=== PATIENT | male | born 1975 | race African-American/Black ===

== ENCOUNTER 2021-03-11 13:54 | Inpatient (IN) | payer BC ==
[2021-03-11] VITALS (8 sets, daily range): BP systolic 122–140; BP diastolic 88–98
[~2021-03-11] VITALS: Ht 167.6 cm; Wt 59.0 kg
[2021-03-11] MEDS ORDERED: HYDROmorphone 2 MG/ML VIAL IVP ONE ×3 (14:00→17:00)
[2021-03-11 14:12] LABS: BASO # 0.1 x10^3/uL (0.0-0.2); BASO % 1 % (0-3); EOS % 1 % (0-3); HEMATOCRIT 43.7 % (39.0-53.0); HEMOGLOBIN 14.1 g/dL (13.0-17.5); LYMPH # 4.7 x10^3/uL (1.0-4.8); LYMPH % 65 % (24-48); MEAN CORPUSCULAR HEMOGLOBIN 26 pg (25-35); MEAN CORPUSCULAR HGB CONC 32 g/dL (31-37); MEAN CORPUSCULAR VOLUME 79 fL (79-100); MONO # 0.8 x10^3/uL (0.0-1.1); MONO % 11 % (0-9); NEUT # 1.6 x10^3/uL (1.8-7.7); NEUT % 23 % (31-73); PLATELET COUNT 389 x10^3/uL (140-400); RED CELL DISTRIBUTION WIDTH 14.5 % (11.5-14.5); WHITE BLOOD COUNT 7.2 x10^3/uL (4.0-11.0)
[2021-03-11 14:21] LABS: PROTHROMBIN TIME PATIENT 12.4 SEC (11.7-14.0)
[2021-03-11 14:28] LABS: ALBUMIN 3.9 g/dL (3.4-5.0); ALBUMIN/GLOBULIN RATIO 1.1 (1.0-1.7); CALCIUM 8.9 mg/dL (8.5-10.1); CREATININE 0.9 mg/dL (0.7-1.3); GFR 91.3; TOTAL BILIRUBIN 0.3 mg/dL (0.2-1.0); TOTAL PROTEIN 7.6 g/dL (6.4-8.2)
[2021-03-11] MEDS ORDERED: IOHEXOL 350 MG/ML 100 ML VIAL. IV ONE (14:30)
[2021-03-11] MEDS ORDERED: IV NORMAL SALINE 1000ML BAG 1,000 ML IV ONE ×2 (14:30→16:15)
[2021-03-11 14:31] LABS: POTASSIUM 2.8 mmol/L (3.5-5.1)
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
[2021-03-11] MEDS ORDERED: POTASSIUM BICARB 20 MEQ EFFERVESCENT TABLET. PO ONE (14:45)
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
[2021-03-11] MEDS ORDERED: DIPH,PERTUSS(ACELL),TET VAC/PF 0.5 ML SYRINGE. VAX IM ONE (16:15)
[2021-03-11 16:16] LABS: % ATYL 1 % (0-0); % BANDS 2 % (0-9); % LYMPHS 61 % (24-48); % MONOS 7 % (0-10); % SEGS 29 % (35-66)
[2021-03-11 16:17] LABS: PLT ESTIMATE ADEQUATE (ADEQUATE)
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
[2021-03-11] MEDS ORDERED: ROCURONIUM 50 MG/5 ML VIAL. ONE (16:40)
[2021-03-11] MEDS ORDERED: SUCCINYLCHOLINE 200 MG/10 ML VIAL. ONE (16:40)
[2021-03-11] MEDS ORDERED: PROPOFOL 10 MG/ML (20ML) VIAL. IV ONE (16:43)
[2021-03-11] MEDS ORDERED: DESFLURANE > 120 MINUTES IH ONE (16:43)
[2021-03-11] MEDS ORDERED: LIDOCAINE 2% PF 5 ML VIAL. ONE (16:44)
[2021-03-11] MEDS ORDERED: PHENYLEPHRINE in 0.9% NACL PF 1 MG/10 ML SYRINGE. IV ONE (16:44)
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
[2021-03-11] MEDS ORDERED: THROMBIN TOPICAL 5,000 UNIT VIAL. ONE (16:55)
[2021-03-11] MEDS ORDERED: GELATIN SPONGE SIZE 100. ONE (16:55)
[2021-03-11] MEDS ORDERED: SURGICEL FIBRILLAR 1X2 EACH. ONE (16:55)
[2021-03-11] MEDS ORDERED: PAPAVERINE 60 MG/2 ML VIAL. ONE (16:56)
[2021-03-11] MEDS ORDERED: LIDOCAINE 1% PF 30 ML VIAL. ONE (16:56)
[2021-03-11] MEDS ORDERED: BUPIVACAINE MPF 0.5% 30 ML VIAL. ONE (16:56)
[2021-03-11] MEDS ORDERED: fentaNYL PF VIAL 100 MCG/2 ML VIAL IVP PRN ×3 (17:00→19:30)
[2021-03-11] MEDS ORDERED: HEPARIN SODIUM 5,000 UNIT in IV NORMAL SALINE 500ML BAG 500 ML IRR ONE (17:00)
[2021-03-11] MEDS ORDERED: SENNOSIDES/DOCUSATE 8.6/50MG TABLET. PO PRN (17:00)
[2021-03-11] MEDS ORDERED: oxyCODONE IR 5 MG TABLET PO PRN (17:00)
[2021-03-11] MEDS ORDERED: ONDANSETRON PF 4 MG/2 ML VIAL. ONE (17:36)
[2021-03-11] MEDS ORDERED: DEXAMETHASONE SOD PHOS 4 MG/ML VIAL ONE (17:36)
[2021-03-11] MEDS ORDERED: FAMOTIDINE 20 MG/2 ML VIAL ONE (17:36)
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
[2021-03-11] MEDS ORDERED: fentaNYL PF VIAL 250 MCG/5 ML VIAL ONE (18:38)
[2021-03-11] MEDS ORDERED: MAG HYDROX/ALUMINUM HYD/SIMETH 30 ML ORAL.SUSP PO PRN (19:15)
[2021-03-11] MEDS ORDERED: 0.9 % SODIUM CHLORIDE 10 ML DISP.SYRIN. IV PRN (19:15)
[2021-03-11] MEDS: IV NORMAL SALINE 1000ML BAG 1,000 ML IV SCH (19:15)
[2021-03-11] MEDS ORDERED: NALOXONE 0.4 MG/ML VIAL. IV PRN (19:15)
[2021-03-11] MEDS ORDERED: IV NORMAL SALINE 1000ML BAG 1,000 ML IV SCH (19:15)
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
[2021-03-11] MEDS ORDERED: IV RINGERS,LACTATED 1000ML 1,000 ML IV SCH (19:30)
[2021-03-11] MEDS ORDERED: HYDROmorphone 2 MG/ML VIAL IVP PRN (19:30)
[2021-03-11] MEDS ORDERED: PROCHLORPERAZINE 10 MG/2 ML VIAL. IVP PRN (19:30)
[2021-03-11] MEDS ORDERED: ceFAZolin SODIUM IV Push 1 GM VIAL. IVP SCH (19:30)
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
[2021-03-11] MEDS ORDERED: MORPHINE SULFATE 2 MG/ML INJ. ONE (19:57)
[2021-03-11] MEDS: MORPHINE SULFATE 2 MG/ML INJ. IVP PRN ×2 (20:04→20:19)
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
[2021-03-11] MEDS: PSYLLIUM HUSK (SUGAR FREE) 1 PKT PACKET PO SCH (21:05)
[2021-03-11] MEDS: oxyCODONE IR 5 MG TABLET PO PRN (22:12)
[2021-03-11] MEDS: ONDANSETRON PF 4 MG/2 ML VIAL. IVP PRN (22:52)
[2021-03-12] VITALS (7 sets, daily range): BP systolic 123–145; BP diastolic 66–98
[2021-03-12] MEDS: HYDROmorphone 2 MG/ML VIAL IVP PRN ×3 (03:22→11:47)
[2021-03-12] MEDS: IV NORMAL SALINE 1000ML BAG 1,000 ML IV SCH ×2 (05:40→17:38)
[2021-03-12] MEDS: HEPARIN for SUB-Q USE 5,000 UNIT/ML VIAL. SQ SCH ×3 (05:50→21:38)
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
[2021-03-12] MEDS ORDERED: ceFAZolin SODIUM IV Push 1 GM VIAL. IVP ONE (06:00)
[2021-03-12] MEDS: ASPIRIN ENTERIC COATED 81 MG TABLET.DR. PO SCH (08:37)
[2021-03-12] MEDS: POLYETHYLENE GLYCOL 3350 17 GM PACKET. PO SCH (08:38)
[2021-03-12] MEDS: ONDANSETRON PF 4 MG/2 ML VIAL. IVP PRN ×2 (09:06→14:14)
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
[2021-03-12 12:42] LABS: HEMATOCRIT 33.5 % (39.0-53.0); HEMOGLOBIN 10.8 g/dL (13.0-17.5); RED BLOOD COUNT 4.3 x10^6/uL (4.30-5.70); RED CELL DISTRIBUTION WIDTH 14.2 % (11.5-14.5); WHITE BLOOD COUNT 8.6 x10^3/uL (4.0-11.0)
[2021-03-12 12:57] LABS: ALBUMIN 3.5 g/dL (3.4-5.0); ALBUMIN/GLOBULIN RATIO 1.1 (1.0-1.7); CALCIUM 8.2 mg/dL (8.5-10.1); CREATININE 0.8 mg/dL (0.7-1.3); GFR 126.5; POTASSIUM 3.5 mmol/L (3.5-5.1); TOTAL BILIRUBIN 0.4 mg/dL (0.2-1.0); TOTAL PROTEIN 6.6 g/dL (6.4-8.2)
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
[2021-03-12] MEDS: oxyCODONE IR 5 MG TABLET PO PRN ×2 (15:41→20:03)
[2021-03-12] MEDS: traMADol 50 MG TABLET PO PRN (19:20)
[2021-03-12] MEDS: PSYLLIUM HUSK (SUGAR FREE) 1 PKT PACKET PO SCH (21:00)
[2021-03-12] MEDS: LACTOBACILLUS RHAMNOSUS GG 1 CAPSULE. PO SCH (21:31)
[2021-03-13] MEDS: IV NORMAL SALINE 1000ML BAG 1,000 ML IV SCH ×3 (01:24→23:24)
[2021-03-13 02:58] VITALS: BP 119/86
[2021-03-13] MEDS: oxyCODONE IR 5 MG TABLET PO PRN ×2 (05:41→10:35)
[2021-03-13] MEDS: ACETAMINOPHEN 325 MG TABLET. PO PRN (06:14)
[2021-03-13] MEDS: HEPARIN for SUB-Q USE 5,000 UNIT/ML VIAL. SQ SCH ×3 (06:25→23:18)
[2021-03-13 07:00] VITALS: BP 127/89
[2021-03-13] MEDS: ONDANSETRON PF 4 MG/2 ML VIAL. IVP PRN ×4 (07:30→23:25)
[2021-03-13] MEDS: fentaNYL PF VIAL 100 MCG/2 ML VIAL IVP PRN ×5 (07:36→23:25)
[2021-03-13] MEDS: LACTOBACILLUS RHAMNOSUS GG 1 CAPSULE. PO SCH ×2 (08:58→20:18)
[2021-03-13] MEDS: ASPIRIN ENTERIC COATED 81 MG TABLET.DR. PO SCH (08:58)
[2021-03-13] MEDS: POLYETHYLENE GLYCOL 3350 17 GM PACKET. PO SCH (09:00)
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
[2021-03-13 11:00] VITALS: BP 126/84
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
[2021-03-13 15:00] VITALS: BP 99/65
[2021-03-13 19:00] VITALS: BP 132/83
[2021-03-13] MEDS: PSYLLIUM HUSK (SUGAR FREE) 1 PKT PACKET PO SCH (21:00)
[2021-03-13 23:00] VITALS: BP 120/76
[2021-03-14 03:00] VITALS: BP 121/81
[2021-03-14] MEDS: HEPARIN for SUB-Q USE 5,000 UNIT/ML VIAL. SQ SCH ×3 (06:00→22:22)
[2021-03-14 07:00] VITALS: BP 126/84
[2021-03-14] MEDS: IV NORMAL SALINE 1000ML BAG 1,000 ML IV SCH ×2 (07:15→17:15)
[2021-03-14] MEDS: ONDANSETRON PF 4 MG/2 ML VIAL. IVP PRN ×3 (07:25→21:05)
[2021-03-14 07:31] LABS: HEMATOCRIT 31.3 % (39.0-53.0); HEMOGLOBIN 9.9 g/dL (13.0-17.5); RED BLOOD COUNT 4.02 x10^6/uL (4.30-5.70); RED CELL DISTRIBUTION WIDTH 13.6 % (11.5-14.5); WHITE BLOOD COUNT 6.6 x10^3/uL (4.0-11.0)
[2021-03-14] MEDS: fentaNYL PF VIAL 100 MCG/2 ML VIAL IVP PRN ×3 (07:31→21:11)
[2021-03-14 07:58] LABS: ALBUMIN 2.7 g/dL (3.4-5.0); ALBUMIN/GLOBULIN RATIO 0.8 (1.0-1.7); CREATININE 0.8 mg/dL (0.7-1.3); GFR 126.5; POTASSIUM 3.3 mmol/L (3.5-5.1); TOTAL BILIRUBIN 0.4 mg/dL (0.2-1.0); TOTAL PROTEIN 6.1 g/dL (6.4-8.2)
[2021-03-14] MEDS: LACTOBACILLUS RHAMNOSUS GG 1 CAPSULE. PO SCH ×2 (08:46→22:16)
[2021-03-14] MEDS: ASPIRIN ENTERIC COATED 81 MG TABLET.DR. PO SCH (08:46)
[2021-03-14] MEDS: POLYETHYLENE GLYCOL 3350 17 GM PACKET. PO SCH (08:49)
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
[2021-03-14 11:03] VITALS: BP 119/83
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
[2021-03-14] MEDS ORDERED: POTASSIUM CHLORIDE 20 MEQ TABLET.ER. PO ONE (14:30)
[2021-03-14 15:07] VITALS: BP 138/89
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
[2021-03-14 19:00] VITALS: BP 135/83
[2021-03-14] MEDS: PSYLLIUM HUSK (SUGAR FREE) 1 PKT PACKET PO SCH (22:16)
[2021-03-14 23:00] VITALS: BP 115/81
[2021-03-15 03:00] VITALS: BP 101/63
[2021-03-15] MEDS: IV NORMAL SALINE 1000ML BAG 1,000 ML IV SCH ×3 (03:15→13:15)
[2021-03-15 04:09] LABS: HEMATOCRIT 30.9 % (39.0-53.0); RED BLOOD COUNT 3.92 x10^6/uL (4.30-5.70); RED CELL DISTRIBUTION WIDTH 13.8 % (11.5-14.5); WHITE BLOOD COUNT 5.5 x10^3/uL (4.0-11.0)
[2021-03-15 04:40] LABS: ALBUMIN 2.5 g/dL (3.4-5.0); ALBUMIN/GLOBULIN RATIO 0.7 (1.0-1.7); CALCIUM 8.1 mg/dL (8.5-10.1); CREATININE 0.7 mg/dL (0.7-1.3); GFR 147.6; POTASSIUM 3.3 mmol/L (3.5-5.1); TOTAL BILIRUBIN 0.3 mg/dL (0.2-1.0)
[2021-03-15] MEDS: HEPARIN for SUB-Q USE 5,000 UNIT/ML VIAL. SQ SCH ×3 (06:00→22:05)
[2021-03-15] MEDS: ONDANSETRON PF 4 MG/2 ML VIAL. IVP PRN ×4 (06:22→21:59)
[2021-03-15] MEDS: fentaNYL PF VIAL 100 MCG/2 ML VIAL IVP PRN ×4 (06:46→22:00)
[2021-03-15 07:00] VITALS: BP 120/83
[2021-03-15] MEDS: POLYETHYLENE GLYCOL 3350 17 GM PACKET. PO SCH (09:00)
[2021-03-15] MEDS: ASPIRIN ENTERIC COATED 81 MG TABLET.DR. PO SCH (09:41)
[2021-03-15] MEDS: LACTOBACILLUS RHAMNOSUS GG 1 CAPSULE. PO SCH ×2 (09:41→20:35)
[2021-03-15 11:00] VITALS: BP 119/82
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
[2021-03-15] MEDS ORDERED: POTASSIUM CHLORIDE 20 MEQ TABLET.ER. PO ONE (13:30)
[2021-03-15 15:00] VITALS: BP 115/80
[2021-03-15 19:30] VITALS: BP 128/93
[2021-03-15] MEDS: PSYLLIUM HUSK (SUGAR FREE) 1 PKT PACKET PO SCH (20:36)
[2021-03-15 23:38] VITALS: BP 127/84
[2021-03-16 03:23] VITALS: BP 103/79
[2021-03-16] MEDS: HEPARIN for SUB-Q USE 5,000 UNIT/ML VIAL. SQ SCH ×3 (06:00→20:41)
[2021-03-16 07:15] VITALS: BP 123/84
[2021-03-16] MEDS: ONDANSETRON PF 4 MG/2 ML VIAL. IVP PRN ×4 (07:36→21:25)
[2021-03-16] MEDS: fentaNYL PF VIAL 100 MCG/2 ML VIAL IVP PRN ×4 (07:38→21:26)
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
[2021-03-16] MEDS: POLYETHYLENE GLYCOL 3350 17 GM PACKET. PO SCH (09:00)
[2021-03-16] MEDS: IV NORMAL SALINE 1000ML BAG 1,000 ML IV SCH ×2 (09:15→20:14)
[2021-03-16] MEDS: LACTOBACILLUS RHAMNOSUS GG 1 CAPSULE. PO SCH ×2 (09:32→20:10)
[2021-03-16] MEDS: ASPIRIN ENTERIC COATED 81 MG TABLET.DR. PO SCH (09:32)
--- NOTE | 2021-03-16 10:14 | NUR ---
SW following. Discussed with RN, pt from home in [place], [place], room air, regular diet. Therapy recommending home. Pt had surgery on 03/11. Some discussion about a wound vac. Med Assist following for self pay status. SW will continue to follow.
[2021-03-16 10:52] VITALS: BP 127/82
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
[2021-03-16 15:09] VITALS: BP 149/98
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
[2021-03-16 19:00] VITALS: BP 131/85
[2021-03-16] MEDS: oxyCODONE IR 5 MG TABLET PO PRN (20:09)
[2021-03-16] MEDS: PSYLLIUM HUSK (SUGAR FREE) 1 PKT PACKET PO SCH (20:15)
[2021-03-16 23:00] VITALS: BP 120/74
[2021-03-17] MEDS: traMADol 50 MG TABLET PO PRN (00:35)
[2021-03-17] MEDS: ONDANSETRON PF 4 MG/2 ML VIAL. IVP PRN ×3 (02:34→22:14)
[2021-03-17] MEDS: fentaNYL PF VIAL 100 MCG/2 ML VIAL IVP PRN ×3 (02:34→22:18)
[2021-03-17 03:00] VITALS: BP 116/79
[2021-03-17] MEDS: HEPARIN for SUB-Q USE 5,000 UNIT/ML VIAL. SQ SCH ×3 (05:17→22:00)
[2021-03-17] MEDS: oxyCODONE IR 5 MG TABLET PO PRN ×4 (05:29→20:13)
[2021-03-17] MEDS: IV NORMAL SALINE 1000ML BAG 1,000 ML IV SCH ×2 (05:29→15:59)
[2021-03-17 07:15] VITALS: BP 107/75
[2021-03-17] MEDS: POLYETHYLENE GLYCOL 3350 17 GM PACKET. PO SCH (09:00)
[2021-03-17] MEDS: ASPIRIN ENTERIC COATED 81 MG TABLET.DR. PO SCH (09:43)
[2021-03-17] MEDS: LACTOBACILLUS RHAMNOSUS GG 1 CAPSULE. PO SCH ×2 (09:43→21:21)
[2021-03-17 11:14] VITALS: BP 118/93
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
[2021-03-17 15:05] VITALS: BP 128/78
[2021-03-17 19:47] VITALS: BP 134/90
[2021-03-17] MEDS: PSYLLIUM HUSK (SUGAR FREE) 1 PKT PACKET PO SCH (21:00)
[2021-03-17 23:36] VITALS: BP 123/79
[2021-03-18] MEDS: oxyCODONE IR 5 MG TABLET PO PRN ×4 (00:50→19:55)
[2021-03-18] MEDS: IV NORMAL SALINE 1000ML BAG 1,000 ML IV SCH ×3 (01:01→21:41)
[2021-03-18 03:00] VITALS: BP 105/75
[2021-03-18] MEDS: ONDANSETRON PF 4 MG/2 ML VIAL. IVP PRN ×4 (04:39→20:13)
[2021-03-18] MEDS: fentaNYL PF VIAL 100 MCG/2 ML VIAL IVP PRN ×4 (04:45→20:14)
[2021-03-18] MEDS: HEPARIN for SUB-Q USE 5,000 UNIT/ML VIAL. SQ SCH ×3 (06:23→22:00)
[2021-03-18 07:15] VITALS: BP 152/70
[2021-03-18] MEDS: POLYETHYLENE GLYCOL 3350 17 GM PACKET. PO SCH (08:42)
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
[2021-03-18] MEDS: ASPIRIN ENTERIC COATED 81 MG TABLET.DR. PO SCH (09:23)
[2021-03-18] MEDS: LACTOBACILLUS RHAMNOSUS GG 1 CAPSULE. PO SCH ×2 (09:23→20:13)
[2021-03-18 10:51] VITALS: BP 128/83
--- NOTE | 2021-03-18 12:08 | NUR ---
TEO following. Discussed with RN,pt now listed as having insurance. Awaiting wound vac, and IV abx determination. [facility]O will continue to follow. Addendum: 03/18/21 at 1552 by EFFIE BRUCE Wound Vac completed by Wound care. [facility] reviewing for home health services, awaiting acceptance confirmation. Po abx. [facility] will continue to follow. Addendum: 03/18/21 at 1608 by EFFIE BRUCE Pt accepted with [facility]. Discharge order for home with home health.
[2021-03-18] MEDS: ACETAMINOPHEN 325 MG TABLET. PO PRN (12:56)
[2021-03-18] MEDS ORDERED: BUTALB/APAP/CAFEIN 50/325/40MG TABLET. PO ONE (14:30)
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
[2021-03-18 15:00] VITALS: BP 149/80
[2021-03-18] MEDS ORDERED: POLY17PO52 PO (16:06)
[2021-03-18] MEDS ORDERED: SUMA25TA4 PO (16:06)
[2021-03-18] MEDS ORDERED: AMOX1TAB61 PO (16:06)
[2021-03-18] MEDS ORDERED: OXYC1TAB15 PO (16:06)
[2021-03-18] MEDS ORDERED: IBUP-1007 PO (16:07)
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
[2021-03-18] MEDS ORDERED: BUTALB/APAP/CAFEIN 50/325/40MG TABLET. PO PRN (16:15)
--- NOTE | 2021-03-18 17:05 | NUR ---
Wound Care Pt seen for wound vac change to RLE and dressing changes to R leg wounds, prior to d/c home today. Wound vac dressing soaked with saline prior to removal and pt premedicated with pain meds. Pt had just returned from the restroom cleaning himself up. Vac drape and foam removed, small area of active bleeding noted at 9:00 at wound edge, pressure held for several minutes, then area pulsated blood across leg. Pressure again held, called Evelia Gastelum with Vascular, orders to apply a wet to dry and pressure dressing for the evening, hold discharge, and Dr. Woods will evaluate area in the morning. Contact layer applied over wound bed, then saline moistened gauze, then ABDs and kerlix, wrapped with coban at 50% stretch. Pt tolerated with moderate amount of pain, leg elevated on several pillows and pt instructed not to get OOB until evaluated by Vascular in the morning, pt v/u. POC discussed with VINEET Stephens.
[2021-03-18 19:23] VITALS: BP 125/89
[2021-03-18] MEDS: PSYLLIUM HUSK (SUGAR FREE) 1 PKT PACKET PO SCH (20:20)
[2021-03-18 22:24] VITALS: BP 132/87
[2021-03-19] MEDS: oxyCODONE IR 5 MG TABLET PO PRN ×2 (00:02→11:08)
[2021-03-19 02:59] VITALS: BP 137/78
[2021-03-19] MEDS: HEPARIN for SUB-Q USE 5,000 UNIT/ML VIAL. SQ SCH (06:00)
[2021-03-19 07:15] VITALS: BP 131/88
[2021-03-19] MEDS: LACTOBACILLUS RHAMNOSUS GG 1 CAPSULE. PO SCH (08:13)
[2021-03-19] MEDS: ASPIRIN ENTERIC COATED 81 MG TABLET.DR. PO SCH (08:13)
[2021-03-19] MEDS: POLYETHYLENE GLYCOL 3350 17 GM PACKET. PO SCH (08:13)
[2021-03-19] MEDS: fentaNYL PF VIAL 100 MCG/2 ML VIAL IVP PRN (08:18)
[2021-03-19] MEDS: ONDANSETRON PF 4 MG/2 ML VIAL. IVP PRN (08:19)
[2021-03-19] MEDS: IV NORMAL SALINE 1000ML BAG 1,000 ML IV SCH (08:21)
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
[2021-03-19] MEDS ORDERED: CEPH500C PO (09:57)
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
[2021-03-19 10:55] VITALS: BP 132/93
--- NOTE | 2021-03-19 13:00 | NUR ---
Pt's friend here to take pt home. Friend very beligerant and disrespectful to nursing staff when he was informed that d/c paperwork was not yet ready and pt is to wait until discharge is completed. Friend placed pt in wheel chair and proceeded to wheel him to elevators with IV still in. Other staff confiscated wheel chair to obtain pt to remove IV. Security was called to the unit for completion of d/c instructions. Home [place] in place, pt stated he switched from hospital vac to home vac indepedently. Pt. verbalized understanding of discharge instructions.
[2021-03-19] MEDS ORDERED: CEPHALEXIN 250 MG CAPSULE. PO SCH (14:00)
--- NOTE | 2021-03-19 17:16 | NUR ---
Wound Care Wound care assessed wound with Dr Woods after unable to stop bleeding yesterday with vac removal. Wound is beefy red and not bleeding. Vac replaced at 125 mmHg continuous pressure. Home vac applied. Pt educated on vac protocols. Pt is discharging with home health. He will follow up in [facility] on 03/25/21 at 0930
== END 2021-03-19 13:57 | disposition home health service (06) | DRG 982 ==
LOC: ER 13:54 → 4 NORTH 16:49
PROVIDERS: ADMIT Internal Medicine; ATTEND Internal Medicine
PROC: 0KNQ0ZZ Release Right Upper Leg Muscle, Open Approach (ICD-10-PCS; principal; 2021-03-11 17:00)
DX: T79.A0XA Compartment syndrome, unspecified, initial encounter (principal); S85.16 Unspecified injury of posterior tibial artery; S71.131A Puncture wound without foreign body, right thigh, initial encounter; S81.831A Puncture wound without foreign body, right lower leg, initial encounter; S90.859A Superficial foreign body, unspecified foot, initial encounter; W34.00XA Accidental discharge from unspecified firearms or gun, initial encounter; E87.6 Hypokalemia; D64.9 Anemia, unspecified; W45.8XXA Other foreign body or object entering through skin, initial encounter; Y90.6 Blood alcohol level of 120-199 mg/100 ml; Y92.810 Car as the place of occurrence of the external cause; Z20.822 Contact with and (suspected) exposure to COVID-19; Z23 Encounter for immunization; Z82.49 Family history of ischemic heart disease and other diseases of the circulatory system
CPT/HCPCS: 36415; 73552; 73562; 73590; 73630; 73706; 80053; 82550; 82607; 83540; 83550; 83735; 85007; 85025; 85027; 85610; 85730; 86850; 86900; 86901; 87071; 87075; 87426; 88304; 90471; 90715; 96365; 96366; 96375; A4209; A4315; A4930; A6223; A6253; A6258; A6402; A6443; A6449; A6450; A6455; G0480; J0330; J0690; J1100; J1170; J1644; J2270; J2370; J2405; J2440; J2704; J3010; J3490; J7030; J7040; J7120; Q9967; U0003; U0005; 97110-GP; 97116-GP; 99285-25; G0378